=== PATIENT | female | born 1950 | race Caucasian/White ===

== ENCOUNTER → 2017-05-06 | Outpatient (CLI) | payer MEDICARE, BC ==
--- NOTE | ~2017-05-06 | PUL ---
PATIENT'S NAME: ALESSANDRA JOSHI [facility] AGE: 66 Y [address] ROOM: [place] [id number] LOCATION: [facility] ADMIT DATE: 05/06/2017 Pulmonary DISCHARGE DATE: FAMILY PHYSICIAN: Jeimy Horner APRN ATTENDING PHYSICIAN: Jeimy Horner NAME OF PROCEDURE: Sleep Study PROCEDURE DATE: 05/06/17 TECH: SALOME Bah TEST #: [facility] [place]# [id number] TECHNICAL PARAMETERS: The patient was studied using International 10/20 measuring system. While the patient was studied, there was continuous monitoring of EEG (8 leads), EOG (2 leads), EKG (3 leads), submental EMG (3 leads), tibial (4 leads), respiratory inductive plethysmography (RIP) for thoracic and abdominal effort, oral and nasal airflow with a thermocouple and pressure transducer, and oximetry. The final operations technician also performed visual and auditory observations noting things like body position, patient's status, breath sounds, artifact, snoring level and patient comments. Continuous sound was monitored using a 2-way speaker system and video monitoring was performed using an infrared camera. Review of the entire study was performed epoch by epoch utilizing a single epoch and multiple epoch capability sleep system. MEDICAL HISTORY: The patient is a 66-year-old woman with daytime sleepiness and snoring. SLEEP STAGE SUMMARY: The patient was studied for 511 minutes of which she slept 413 minutes. She fell asleep in 39 minutes and slept for 81% of the night. Sleep architecture revealed a decline in slow wave and REM sleep. RESPIRATORY SUMMARY: Oxygen saturations ranged from 76%-90%. Saturations were below 88% for 247 minutes. Prior to initiating CPAP there was 1 apnea and 56 hypopneas for an apnea/hypopnea index moderately elevated at 18 events per hour. CPAP was initiated. Full titration was not achieved due to insufficient time. EKG SUMMARY: No dysrhythmias were noted. LIMB MOVEMENT SUMMARY: No clinically relevant periodic limb movements were noted. SUMMARY: Obstructive sleep apnea. PATIENT'S NAME: ALESSANDRA JOSHI [facility] AGE: 66 Y [address] ROOM: [place] [id number] LOCATION: [facility] ADMIT DATE: 05/06/2017 Pulmonary DISCHARGE DATE: FAMILY PHYSICIAN: Jeimy Horner APRN ATTENDING PHYSICIAN: Jeimy Horner PLAN: Would consider either a repeat study for full CPAP titration or initiation of auto titrating CPAP. Patient will receive results from the ordering provider. LEANA SHINE MD [facility]/ /[id number] dtt: 05/14/17 0827 , Leana Shine. dtd: 05/10/17 1354
== END | disposition disaster alternative care site (69) ==
LOC: GSLP 20:10
DX: G47.33 Obstructive sleep apnea (adult) (pediatric) (principal); R06.83 Snoring; R09.02 Hypoxemia